=== PATIENT | male | born 1970 | race Hispanic/Latino ===

== ENCOUNTER 2016-11-02 18:33 | Emergency (ER) | payer OTHER ==
[2016-11-02] MEDS ORDERED: Ondansetron ODT 4 MG TAB ONE (18:51)
[2016-11-02] MEDS ORDERED: Ketorolac Tromethamine 60 MG/2 ML VIAL ONE (18:51)
--- NOTE | 2016-11-02 20:39 | CT ---
CT OF THE BRAIN WITHOUT CONTRAST 11/02/[address] was done following trauma. Axial slices were acquired. The ventricles are normal in size with no shift. No intracranial bleeding or extra-axial hematoma was seen. There is good felipe/w pam distinction. No mass, edema, or other acute changes were seen. No skull fractures were present. The sphenoid sinus and mastoid air cells are clear. IMPRESSION: No acute intracranial findings. POS: HOME
--- NOTE | 2016-11-02 20:42 | CT ---
CT CERVICAL SPINE WITHOUT CONTRAST 11/02/[address] of the cervical spine was performed for evaluation following trauma. Axial slices were acq uired, then coronal and sagittal reconstructions were done. No fracture, dislocation, or acute bony change was seen. The C1 to dens distance is normal. Spinal a lignment appeared normal. There is no disc space narrowing. No significant central canal or foramina l stenosis was seen. IMPRESSION: No acute traumatic findings. POS: HOME
== END 2016-11-02 19:48 | disposition home or self-care (01) ==
LOC: BURERS 18:33
DX: S06.0X0A Concussion without loss of consciousness, initial encounter (principal); S50.12XA Contusion of left forearm, initial encounter; S00.83XA Contusion of other part of head, initial encounter; W22.8XXA Striking against or struck by other objects, initial encounter
CPT/HCPCS: 70450; 72125; 94760; 96372; J1885; Q0162

== ENCOUNTER 2016-11-02 20:17 | Outpatient (CLI) | payer OTHER | END 2016-11-02 20:18 | disposition home or self-care (01) | LOC: BURLAB 20:17 | PROVIDERS: ATTEND Family Medicine | DX: Z02.89 Encounter for other administrative examinations (principal) ==

== ENCOUNTER 2017-10-20 01:30 | Emergency (ER) | payer OTHER ==
[2017-10-20 02:04] LABS: #Basophils 0.1 thou/uL (0.0-0.2); #Eosinphils 0.4 thou/uL (0.0-0.7); #Monocytes 0.4 thou/uL (0.11-0.59); #Neutrophils 3.9 thou/uL (1.40-6.50); %Basophils 1.3 % (0.0-1.0); %Eosinophils 4.8 % (0.0-10.0); %Lymphocytes 38.5 % (21.0-51.0); %Monocytes 5.6 % (0.0-10.0); %Neutrophils 49.8 % (42.0-75.0); Hemoglobin 14.7 g/dL (14.0-18.0); Mean Corpuscular HGB CONC 36.3 g/dL (32.0-36.0); Mean Corpuscular Hemoglobin 28.9 pg (27.0-31.0); Mean Corpuscular Volume 79.7 fL (78.0-98.0); Mean Platelet Volume 6.4 fL (7.4-10.4); Platelet Count 254 thou/uL (130-400); Red Blood Cell (RBC) Count 5.08 mill/uL (4.70-6.10); White Blood Cell (WBC) Count 7.8 thou/uL (4.8-10.8)
[2017-10-20] MEDS ORDERED: Ondansetron HCl/PF 4 MG/2 ML Vial ONE (02:04)
[2017-10-20 02:11] LABS: Clarity Slightly Cloudy (Clear)
[2017-10-20 02:12] LABS: Leukocyte Negative (Negative); Nitrite Negative (Negative); Protein, Urine (Dipstick) 30 mg/dL (Neg-Trace); Specific Gravity, Urine 1.032 (1.005-1.030)
[2017-10-20 02:13] LABS: Bilirubin Small (Negative); Blood, Urine Trace (Negative); Glucose, Urine (Dipstick) Negative (Negative); Urobilinogen 0.2 mg/dL (0.2-1.0)
[2017-10-20 02:16] LABS: Bacteria/HPF 1+ HPF (None Seen); Squamous Epithelial 0-3 HPF (0-3)
[2017-10-20 02:22] LABS: ALT (SGPT) 16 U/L (8-55); AST (SGOT) 17 U/L (5-34); Albumin 4.2 g/dL (3.5-5.0); Alkaline Phosphatase 90 U/L (40-150); Anion Gap 12 mmol/L (10-20); BUN (Urea Nitrogen) 15 mg/dL (8.9-20.6); Bilirubin, Total 0.5 mg/dL (0.2-1.2); CK (CPK) 190 U/L (30-200); Calc. Creatinine Clearance 0 mL/min (70-130); Calcium 8.9 mg/dL (7.8-10.44); Carbon Dioxide 24 mmol/L (22-29); Chloride 109 mmol/L (98-107); Estimated GFR-MDRD 76; Globulin 2.9 g/dL (2.4-3.5); Glucose 95 mg/dL (70-105); Lipase 19 U/L (8-78); Potassium 3.3 mmol/L (3.5-5.1); Protein, Total 7.1 g/dL (6.0-8.3); Sodium 142 mmol/L (136-145)
== END 2017-10-20 02:40 | disposition home or self-care (01) ==
LOC: BURERS 01:30
DX: R11.2 Nausea with vomiting, unspecified (principal)
CPT/HCPCS: 80053; 81003; 81015; 82550; 83690; 85025; 93005; 96361; 96374; J2405

== ENCOUNTER 2018-09-03 18:32 | Emergency (ER) | payer OTHER, SELFPAY ==
[2018-09-03] MEDS ORDERED: Bacitracin 1 PK ONE (19:09)
[2018-09-03] MEDS ORDERED: traMADol HCl 50 MG TAB ONE (19:19)
--- NOTE | 2018-09-03 21:15 | RAD ---
LEFT GREAT TOE: Date: 09-03-18 FINDINGS: No acute fracture was seen. Sesamoid bones were seen at the IP joint of the toe. There may have been old trauma to the base of the distal phalanx, but certainly no acute injury was indicated. IMPRESSION: No acute bony finding. POS: HOME
== END 2018-09-03 19:20 | disposition home or self-care (01) ==
LOC: BURERS 18:32
DX: S90.222A Contusion of left lesser toe(s) with damage to nail, initial encounter (principal); W22.8XXA Striking against or struck by other objects, initial encounter
CPT/HCPCS: 11740

== ENCOUNTER 2018-12-28 10:38 | Emergency (ER) | payer SELFPAY ==
[2018-12-28 11:18] LABS: Bilirubin Negative (Negative); Blood, Urine Trace (Negative); Clarity Clear (Clear); Glucose, Urine (Dipstick) Negative (Negative); Leukocyte Negative (Negative); Nitrite Negative (Negative); Protein, Urine (Dipstick) Negative (Neg-Trace); Urobilinogen 0.2 mg/dL (Less than 2)
[2018-12-28 11:26] LABS: Bacteria/HPF Rare-Few HPF (None Seen); RBC/HPF 0-3 HPF (0-3); Renal Epithelial None Seen HPF (None Seen); Squamous Epithelial None Seen HPF (0-3); Transitional Epithelial None Seen HPF (None Seen); WBC/HPF None Seen HPF (0-3)
[2018-12-28] MEDS ORDERED: Ketorolac Tromethamine 30 MG/ML VIAL ONE (11:26)
[2018-12-28 11:27] LABS: Broad Cast None Seen LPF (None Seen); Calcium Oxalate Crystals None Seen HPF (None Seen); Cellular Cast None Seen LPF (None Seen); Epithelial Cast None Seen LPF (None Seen); Fatty Cast None Seen LPF (None Seen); Mucous/LPF None Seen LPF (<2+); Other Casts None Seen LPF (None Seen); Oval Fat Bodies/HPF None Seen HPF (None Seen); Red Blood Cell Cast None Seen LPF (None Seen); Sperm/HPF None Seen HPF (None Seen); Trichomonas/HPF None Seen HPF (None Seen); Triple Phosphate Crystal None Seen HPF (None Seen); Unclassified Crystals None Seen HPF (None Seen); Waxy Cast None Seen LPF (None Seen); White Blood Cell Cast None Seen LPF (None Seen); Yeast-Budding None Seen HPF (None Seen); Yeast-Hyphae None Seen HPF (None Seen)
[2018-12-28] MEDS ORDERED: Iopamidol 370 76% 100 ML VIAL ONE (11:27)
[2018-12-28 12:13] LABS: #Basophils 0.1 thou/uL (0.0-0.2); #Eosinphils 0.4 thou/uL (0.0-0.7); #Lymphocytes 2.6 thou/uL (1.20-3.40); #Monocytes 0.7 thou/uL (0.11-0.59); #Neutrophils 4.4 thou/uL (1.40-6.50); %Basophils 1.4 % (0.0-1.0); %Eosinophils 5.1 % (0.0-10.0); %Lymphocytes 31.5 % (21.0-51.0); %Monocytes 8.8 % (0.0-10.0); %Neutrophils 53.2 % (42.0-75.0); Hemoglobin 14.9 g/dL (14.0-18.0); Mean Corpuscular HGB CONC 32.4 g/dL (32.0-36.0); Mean Corpuscular Hemoglobin 30.2 pg (27.0-31.0); Mean Corpuscular Volume 93.1 fL (78.0-98.0); Mean Platelet Volume 7.3 fL (7.4-10.4); Platelet Count 260 thou/uL (130-400); RBC Distribution Width 11.9 % (11.5-14.5); Red Blood Cell (RBC) Count 4.93 mill/uL (4.70-6.10); White Blood Cell (WBC) Count 8.3 thou/uL (4.8-10.8)
[2018-12-28 12:20] LABS: ALT (SGPT) 17 U/L (8-55); AST (SGOT) 23 U/L (5-34); Albumin 4.1 g/dL (3.5-5.0); Alkaline Phosphatase 75 U/L (40-110); Anion Gap 11 mmol/L (10-20); BUN (Urea Nitrogen) 21 mg/dL (8.9-20.6); Bilirubin, Total 0.4 mg/dL (0.2-1.2); Calc. Creatinine Clearance 0 mL/min (70-130); Calcium 8.8 mg/dL (7.8-10.44); Carbon Dioxide 28 mmol/L (22-29); Chloride 106 mmol/L (98-107); Estimated GFR-MDRD 82; Globulin 2.7 g/dL (2.4-3.5); Glucose 83 mg/dL (70-105); Potassium 4.1 mmol/L (3.5-5.1); Protein, Total 6.8 g/dL (6.0-8.3); Sodium 141 mmol/L (136-145)
--- NOTE | 2018-12-28 14:26 | CT ---
CT ABDOMEN AND PELVIS WITH CONTRAST: 12/28/2018 COMPARISON: 03/21/2015 FINDINGS: The lung bases are clear. Multiple hepatic cysts are noted which are similar to the 2016 study. The l iver otherwise is unremarkable as is the spleen, pancreas, adrenal glands, and aorta. The gallbladder is collapsed and difficult to see well. There appears to be a cyst in the upper pole of the right ki dney, which is not a new finding. There is no hydronephrosis. The stomach is prominently dilated and fluid filled, also having some retained food stuff in it. The duodenum is fluid filled and somewhat dilated as are some of the loops of proximal small bowel. The r emainder of small bowel is quite fluid filled, though the ralph are not thick, nor are the rest of th e loops dilated. The appendix is dilated measuring 7 to 8 mm in most spots however it is air filled and does not appea r to have thickened ralph and has no particular enhancement or definite periappendiceal stranding. Th us appendicitis cannot be diagnosed at this time. The size should be kept in mind, depending upon the patient's progression. No free air or free fluid is seen in the abdomen. CT of the pelvis shows no pelvic masses, fluid collections or inflammatory changes. IMPRESSION: 1. Distended fluid filled stomach, distended fluid filled duodenum and fluid filled small bowel, more proximal than distal. These findings were present on the 2016 study just to a lesser degree in some spots. Because of the fluid filled nature of the small bowel is so uniform in both the sections that are slightly dilated and those that are not, a partial small bowel obstruction seems less likely. Ent eritis in a patient who already has a somewhat large stomach is possible. The patient should be monit ored, but it is striking that the findings are only minimally different than 2016. 2. Somewhat dilated appendix but with no other findings typical of appendicitis. The size is prominen t but the appendix is air filled throughout almost its entire extent. It is larger than before but wi th the lack of other findings, appendicitis cannot be diagnosed at this time. The patient might need to be rescanned, depending on their progress. 3. Multiple hepatic cysts and right renal cyst. These were present on the prior study. Preliminary report taken to the ER at 1320 hours on 12/28/2018. POS: [facility]
== END 2018-12-28 13:39 | disposition home or self-care (01) ==
LOC: BURERS 10:38
DX: R10.30 Lower abdominal pain, unspecified (principal); K21.9 Gastro-esophageal reflux disease without esophagitis; F17.210 Nicotine dependence, cigarettes, uncomplicated
CPT/HCPCS: 74177; 80053; 81003; 81015; 83605; 83690; 85025; 96374; J1885; Q9967

== ENCOUNTER 2019-12-18 12:02 | Outpatient (CLI) | payer BC ==
--- NOTE | 2019-12-18 17:01 | RAD ---
LUMBAR SPINE THREE VIEWS: 12/18/19 There is wedging and partial fusion of the T11 and T12 vertebrae, but this is an old finding. It can be seen on the 2016 CT abdomen study. No acute fractures are seen. There is no disc space narrowing in the lumbar levels. Arthritic changes are minimal. The SI joints are symmetrical. IMPRESSION: Old changes at the T11-T12 level but no acute bony finding. POS: HOME
== END 2019-12-18 12:03 | disposition home or self-care (01) ==
LOC: BURRAD 12:02
PROVIDERS: ATTEND Nurse Practitioner Family
DX: M54.5 Low back pain (principal)
CPT/HCPCS: 72100

== ENCOUNTER 2020-01-18 09:44 | Outpatient (CLI) | payer BC | END 2020-01-18 09:45 | disposition home or self-care (01) | LOC: BUREKG 09:44 | PROVIDERS: ATTEND Physician Assistant | DX: R51.9 Headache, unspecified (principal) | CPT/HCPCS: 93005; 93010 ==